=== PATIENT | female | born 1975 | race African-American/Black ===

== ENCOUNTER 2016-07-26 06:52 | Day surgery (SDC) | payer BC ==
[2016-07-25 14:24] LABS: ABSOLUTE EOSINOPHILS # (AUTO) 0.1 10^3/uL (0.0-0.6); ABSOLUTE LYMPHOCYTES (AUTO) 1.8 10^3/uL (0.5-4.7); ABSOLUTE MONOCYTES (AUTO) 0.3 10^3/uL (0.1-1.4); ABSOLUTE NEUT (AUTO) 3.4 10^3/uL (1.7-8.2); BASOPHILS % (AUTO) 0.7 % (0-2); EOSINOPHILS % (AUTO) 1.1 % (0-6); HEMATOCRIT 39.3 % (36.0-47.0); HEMOGLOBIN 13.1 g/dL (12.0-15.5); LYMPHOCYTES % (AUTO) 32.7 % (13-45); MEAN CORPUSCULAR HEMOGLOBIN 27.5 pg (27.0-33.4); MEAN CORPUSCULAR HGB CONC 33.2 g/dL (32.0-36.0); MEAN CORPUSCULAR VOLUME 83 fl (80-97); MONOCYTES % (AUTO) 5.6 % (3-13); RED BLOOD COUNT 4.76 10^6/uL (3.72-5.28); RED CELL DISTRIBUTION WIDTH 13.7 % (11.5-14.0); SEGMENTED NEUTROPHILS % (AUTO) 59.9 % (42-78); WHITE BLOOD COUNT 5.6 10^3/uL (4.0-10.5)
[2016-07-25 14:31] LABS: APPEARANCE,URINE CLEAR; BILIRUBIN,URINE NEGATIVE (NEGATIVE); GLUCOSE, URINE NEGATIVE (NEGATIVE); KETONES,URINE NEGATIVE (NEGATIVE); LEUKOCYTE ESTERASE,URINE NEGATIVE (NEGATIVE); NITRITE,URINE NEGATIVE (NEGATIVE); PROTEIN,URINE NEGATIVE (NEGATIVE); URINE SPECIFIC GRAVITY 1.014
[~2016-07-26 06:52] MED LIST: CEFAZOLIN 1 GM/D5W RTU 1 GM/50 ML RTUPB IV PRN; RINGERS SOLUTION,LACTATED 1,000 ML IV PRN
[2016-07-26] MEDS ORDERED: MIDAZOLAM 2 MG/2 ML INJ ONE (07:02)
[2016-07-26] MEDS ORDERED: PROPOFOL INJ 200 MG/20 ML VIAL IV ONE (07:02)
[2016-07-26] MEDS ORDERED: BUPIVACAINE HCL 0.75% INJ/PF (7.5 MG/1 ML) 10 ML SDV ONE (07:02)
[2016-07-26] MEDS ORDERED: FENTANYL CITRATE INJ/PF 100 MCG/2 ML AMPUL ONE (07:02)
[2016-07-26] MEDS ORDERED: LIDOCAINE 1% INJ-PF (10 MG/ML) 30 ML SDV ONE (07:03)
[2016-07-26] MEDS ORDERED: LIDOCAINE 2% INJ (20 MG/ML) 20 ML MDV ONE ×2 (07:11→08:08)
[2016-07-26] MEDS ORDERED: DEXAMETHASONE SOD PHOSPHATE INJ 4 MG/1 ML VIAL ONE ×2 (07:12→08:37)
[2016-07-26] MEDS ORDERED: BUPIVACAINE HCL 0.5 % INJ/PF 30 ML SDV ONE (07:12)
[2016-07-26] MEDS ORDERED: ALBUTEROL SULFATE 0.083% NEB 2.5 MG/3 ML AMPUL NEB ONE (07:57)
[2016-07-26] MEDS ORDERED: ONDANSETRON HCL INJ/PF 4 MG/2 ML SDV ONE (08:37)
[2016-07-26] MEDS ORDERED: MORPHINE SULFATE 10 MG/ML INJ ONE (08:58)
--- NOTE | 2016-07-26 09:53 | [facility] OPERATIVE REPORT E ---
[facility] Operative Report NAME: DESHAUN VINSON AGE: 41Y DATE OF SURGERY: 07/26/2016 ROOM: PREOPERATIVE DIAGNOSIS: Chronic heel pain, right foot. POSTOPERATIVE DIAGNOSIS: Chronic heel pain, right foot. PROCEDURES PERFORMED: Endoscopic plantar fasciotomy, right foot. SURGEON: DELFINA MCCARTHY D.P.M. INTRAOPERATIVE FINDINGS: Intraoperative findings indicated thickening of the plantar fascia at its attachment to the calcaneus. DESCRIPTION OF PROCEDURE: With the patient lying in a dorsal recumbent position, the right foot and leg were prepped and draped in the usual standard sterile orthopedic manner after the local anesthesia was administered, which was a total ankle block. At this point, the measurements from the axis were transferred to the medial aspect of the right heel. The measurements were as follows: 3 cm from the posterior aspect of the heel, and 1.5 cm from the plantar aspect of the heel. The intersection was right at the medial calcaneal tubercle, and that the was level of placement of the small incision. Next, the right leg was elevated for approximately 2 minutes of time and the right ankle pneumatic tourniquet was inflated up to 250 mmHg after the blood was exsanguinated from the right foot. Next, the right leg was brought to the level of the table and attention was directed right over the medial aspect of the right heel. A 1 cm in length vertical incision was placed right over the level of the intersection of the 2 points obtained from the x-rays. The initial incision was deepened and the superficial and deep subcutaneous tissues were dissected via blunt and sharp dissection. This dissection was carried until the level of the placement of the instrumentation was established, which was between the plantar fascia superiorly and the heavy layer of adipose tissue inferior to the plantar fascia. Using an elevator, a pathway was created for the placement of the probe with a trocar sheath. The pathway was immediately inferior and adjacent to the plantar fascia and extended from medial to lateral direction across the length of the fascia. Next, the probe with a trocar sheath was introduced into the surgical area and a small stab incision was created on the lateral aspect of the heel in order to allow the cylinder to exit on the lateral aspect of the heel. At this point, the probe was removed and the cutting surface of the trocar sheath was adjusted and situated. It was facing directly superiorly in relationship to the plantar fascia. At this point, the scope was introduced into the area and the point of orientation was established. At this point, the first intraoperative picture was obtained, which documented the white glistening, thick plantar fascia. Next, using a regular hockey-type blade, the plantar fascia was cut from medial to lateral direction. Several repetitions were performed with this blade due to the thickness of the plantar fascia. The second photograph was taken documenting the partial severing from the plantar fascia. Next, pressure was applied to the ball of the foot. The foot was dorsiflexed and the repetition of cutting from medial to lateral direction continued until the full-thickness of the plantar fascia was severed. Only the medial two thirds of the plantar fascia were completely cut from medial to lateral direction and the lateral one third of the plantar fascia was left uninterrupted. Next, the septal muscle fibers were also cut. At this point, the final photography was taken, documenting the complete severing of the plantar fascia and again, only the medial two thirds of the plantar fascia were severed. At this point, the positioning of the scalpel and the blade were reversed in order to make sure that any unsevered fibers of the plantar fascia were cut completely. Next, the surgical area was irrigated with copious amounts of sterile saline solution. The trocar sheath was removed from the surgical area and a right ankle pneumatic tourniquet was deflated and circulation to the right foot returned to normal immediately as the normal digital color and temperature became apparent. Next, 1 mL of dexamethasone was injected into the surgical area to control postoperative inflammation. A [place] was introduced from medial to lateral direction into the surgical wound in order to prevent hematoma formation at this point. Utilizing a 4-0 nylon, the 2 stab incisions were closed on the medial and lateral aspect of the heel. Betadine compression dressing was applied to the right foot followed with an Igor bandage and a surgical shoe. This patient tolerated all procedures well, left the operating room with stable vital signs and in good condition. The patient was taken to the recovery room, alert, conscious, and oriented, and there were no permanent disabilities anticipated at this time. DICTATING PHYSICIAN: DELFINA MCCARTHY D.P.M. [id number] PHY#: [id number] ID: [id number] JOB#: [id number] ACCT: [id number] cc:DELFINA MCCARTHY D.P.M. >
== END 2016-07-26 11:00 | disposition home or self-care (01) ==
LOC: SC 06:52
PROVIDERS: ATTEND Podiatrist Foot & Ankle Surgery
PROC: 0J8Q3ZZ Division of Right Foot Subcutaneous Tissue and Fascia, Percutaneous Approach (ICD-10-PCS; principal; 2016-07-26 07:30)
DX: M72.2 Plantar fascial fibromatosis (principal); G89.29 Other chronic pain; M79.671 Pain in right foot; M19.90 Unspecified osteoarthritis, unspecified site; Z79.1 Long term (current) use of non-steroidal anti-inflammatories (NSAID); Z88.5 Allergy status to narcotic agent
CPT/HCPCS: 36415; 85025; 81001; 29893; J2250; J3490 ×3; J0690; J1100; J3010; J2270; J2405; J2704; 1464

== ENCOUNTER → 2017-04-08 | Outpatient (CLI) | payer OTHER, MEDICAID ==
--- NOTE | 2017-04-08 16:16 | WOMENS IMAGING REPORT ---
EXAM DESCRIPTION: BILAT SCREENING MAMMO W/CAD COMPLETED DATE/TIME: 04/08/2017 7:36 am REASON FOR STUDY: SCREENING MAMMO Z12.31 ENCNTR SCREEN MAMMOGRAM FOR MALIGNANT NEOPLASM OF VIKTORIYA COMPARISON: 04/03/2016. TECHNIQUE: Standard craniocaudal and mediolateral oblique views of each breast recorded using digita l acquisition. LIMITATIONS: None. FINDINGS: No masses, calcifications or architectural distortion. No areas of suspicion. Read with the assistance of CAD. .[facility] - R2 Cenova Version 1.3 .[facility] - R2 Cenova Version 1.3 .[facility] - R2 Cenova Version 2.4 .[facility] [place] R2 Cenova Version 2.4 .[facility] - R2 [employer] Version 9.2 IMPRESSION: NORMAL MAMMOGRAM. BIRADS 1. BREAST DENSITY: b. There are scattered areas of fibroglandular density. BIRAD: 1 NEGATIVE RECOMMENDATION: ROUTINE SCREENING COMMENT: The patient has been notified of the results by letter per [place] requirements. Additional no tification policies are in place for contacting patient with suspicious or incomplete findings. Quality ID #225: The [employer] recommends an annual screening mammogram for women aged 40 years or over. This facility utilizes a reminder system to ensure that all patients receive reminder letters, and/or direct phone calls for appointments. This includes reminders for routine scr eening mammograms, diagnostic mammograms, or other Breast Imaging Interventions when appropriate. Th is patient will be placed in the appropriate reminder system. The [employer] (ACR) has developed recommendations for screening MRI of the breast s in certain patient populations, to be used in conjunction with mammography. Breast MRI surveillanc e may be appropriate for women with more than 20% lifetime risk of developing breast cancer as deter mined by genetic testing, significant family history of the disease, or history of mantle radiation f or Hodgkins Disease. ACR Practice Guidelines 2008. TECHNICAL DOCUMENTATION: FINDING NUMBER: (1) ASSESSMENT: (1) JOB ID: [id number] [employer]- All Rights Reserved
== END ==
LOC: WI 07:15
PROVIDERS: ATTEND Family Medicine
DX: Z12.31 Encounter for screening mammogram for malignant neoplasm of breast (principal)
CPT/HCPCS: 77067; G0202

== ENCOUNTER → 2018-08-14 | Outpatient (CLI) | payer OTHER ==
--- NOTE | 2018-08-14 12:15 | WOMENS IMAGING REPORT ---
EXAM DESCRIPTION: 3D SCREENING MAMMO BILAT COMPLETED DATE/TIME: 08/14/2018 8:09 am REASON FOR STUDY: Z12.31 ROUTINE BILATERAL SCREENING Z12.31 ENCNTR SCREEN MAMMOGRAM FOR MALIGNANT N EOPLASM OF VIKTORIYA COMPARISON: 2015, 2017 EXAM PARAMETERS: Views: Standard craniocaudal and mediolateral oblique views of each breast recorded using digital acquisition and breast tomosynthesis. Read with the assistance of CAD. .[facility] - R2 [employer] Version 9.2 LIMITATIONS: None. FINDINGS: No suspicious masses, suspicious calcifications or architectural distortion. No areas of c oncern. IMPRESSION: Assessment: Negative MAMMOGRAM. BIRADS 1. BREAST DENSITY: b. There are scattered areas of fibroglandular density. BIRAD: 1 NEGATIVE RECOMMENDATION: ROUTINE SCREENING COMMENT: The patient has been notified of the results by letter per MQSA requirements. Additional no tification policies are in place for contacting patient with suspicious or incomplete findings. Quality ID #225: The [employer] recommends an annual screening mammogram for women aged 40 years or over. This facility utilizes a reminder system to ensure that all patients receive reminder letters, and/or direct phone calls for appointments. This includes reminders for routine scr eening mammograms, diagnostic mammograms, or other Breast Imaging Interventions when appropriate. Th is patient will be placed in the appropriate reminder system. TECHNICAL DOCUMENTATION: FINDING NUMBER: (1) ASSESSMENT: (1) JOB ID: [id number] [employer]- All Rights Reserved Reading location - IP/workstation name: JJ
== END ==
LOC: WI 07:34
PROVIDERS: ATTEND Physician Assistant
DX: Z12.31 Encounter for screening mammogram for malignant neoplasm of breast (principal)
CPT/HCPCS: 77063; 77067